=== PATIENT | male | born 1955 ===

== ENCOUNTER 2024-11-29 05:27 | Day surgery (SDC) | payer OTHER ==
[2024-11-26 09:55] VITALS: BP 150/75
[2024-11-26 11:04] LABS: URINE APPEARANCE Clear; URINE BILIRRUBIN Negative (NEGATIVE); URINE BLOOD Negative; URINE COLOR Yellow; URINE GLUCOSE Negative (NEGATIVE); URINE KETONE Negative (NEGATIVE); URINE LEUKOCYTE Negative; URINE NITRATE Negative; URINE PROTEIN Negative (NEGATIVE); URINE UROBILINOGEN 0.2 E.U./dl
[2024-11-26 11:09] LABS: URINE EPITHELIAL CELLS 1.6 uL (0.0-38.8); URINE RBC 2.1 uL (0.0-20.8)
[2024-11-26 11:09] LABS: BASO % 0.5 % (0.1-1.2); EOS # 0.37 (0.04-0.54); EOS % 5.8 % (0.7-7.0); LYMPH # 1.57 (1.18-3.74); LYMPH % 24.5 % (19.3-53.1); MEAN PLATELET VOLUME 10.10 fl (9.4-12.4); MONO # 0.45 (0.24-0.82); MONO % 7.0 % (4.7-12.5); NEUT # 3.97 (1.56-6.13); NEUT % 61.9 % (34.0-71.1); RED CELL DISTRIBUTION WIDTH 13.8 % (11.6-14.4)
[2024-11-26 11:41] LABS: INR 1.0
[2024-11-26 11:57] LABS: URINE BACTERIA 3.5 uL (0.0-1933); URINE CAST 0.00 uL (0.0-1.40); URINE WBC 1.3 uL (0.0-23.2)
[2024-11-26 11:58] LABS: ALT/SGPT 28.0 U/L (12-78); AST/SGOT 17.0 U/L (15-37); BILIRUBIN TOTAL 0.4 mg/dL (0.3-1.2); BUN CREA RATIO 17.0 (7.0-25.0); CREATININE SERUM 0.78 mg/dL (0.70-1.30); GFR 98.4; GLOBULINA 3.6 G/DL (2.4-3.5); GLUCOSE FASTING 94.0 mg/dL (65-100); OSMOLALITY SERUM 281.0 MOSM/KG (275-295)
[~2024-11-29] VITALS: Ht 170.2 cm; Wt 78.0 kg
[~2024-11-29 05:27] MED LIST: ZESTRIL10 M1 PO
[2024-11-29] MEDS ORDERED: KETOROLAC TROMETHAMINE 30 MG VIAL IV ONE (08:45)
[2024-11-29] MEDS ORDERED: KETOROLAC TROMETHAMINE 30 MG VIAL IM ONE (08:45)
[2024-11-29] MEDS ORDERED: LIDOCAINE HCL 1%/EPINEPHRINE 20ML VIAL IJ ONE (08:45)
[2024-11-29] MEDS ORDERED: CEFAZOLIN SODIUM 1,000 MG VIAL IV ONE (08:45)
[2024-11-29] MEDS ORDERED: BUPIVACAINE HCL 30 ML VIAL IJ ONE (08:45)
[2024-11-29] MEDS ORDERED: MORPHINE SULFATE 4 MG/ML VIAL IV ONE (12:00)
== END 2024-11-29 12:55 | disposition home or self-care (01) ==
LOC: CIR.AMB 05:27
PROVIDERS: ATTEND Orthopaedic Surgery
DX: M75.122 Complete rotator cuff tear or rupture of left shoulder, not specified as traumatic (principal); M75.22 Bicipital tendinitis, left shoulder; M24.122 Other articular cartilage disorders, left elbow